=== PATIENT | male | born 1955 | race Caucasian/White ===

== ENCOUNTER → 2020-01-09 | Outpatient (CLI) | payer BC ==
[2020-01-09 12:27] LABS: African American GFR (CKD) >90 (>60 ml/min/1.73 sqM); Blood Urea Nitrogen 15 mg/dL (9-20); Non-African American GFR(CKD) >90 (>60 ml/min/1.73 sqM)
--- NOTE | 2020-01-09 15:41 | CT ---
EXAMINATION TYPE: CT brain wo/w con DATE OF EXAM: 01/09/2020 COMPARISON: None HISTORY: [facility] x5 months CT DLP: 2185.3 mGycm Automated exposure control for dose reduction was used. CONTRAST: CT scan of the head is performed without and with IV Contrast, patient injected with 100 mL of Isovue 300. FINDINGS: There is no abnormal enhancing mass or midline shift identified. The ventricles and sulci are within normal limits in size. The globes are intact and the visualized sinuses are remarkable for possible polyp or mucus retention cyst left maxillary sinus. IMPRESSION: Negative contrast enhanced head CT exam.
== END ==
LOC: RADCTMAIN 11:50
PROVIDERS: ATTEND Internal Medicine
DX: R51 Headache (principal); E11.9 Type 2 diabetes mellitus without complications
CPT/HCPCS: 82565; 84520; 70470; 36415; Q9967

== ENCOUNTER → 2020-12-09 | Outpatient (CLI) | payer BC ==
--- NOTE | 2020-12-09 17:02 | CONS ---
CONSULTATION DATE OF SERVICE: 12/09/2020 The is a 65-year-old gentleman who has been reevaluated in the sleep center for obstructive sleep apnea-hypopnea syndrome. HISTORY OF PRESENT ILLNESS/SLEEP-WAKE EVALUATION: Patient has history of obstructive sleep apnea for many years. He continues to use his CPAP equipment but recently developed episodes of headaches in the morning after awakening and during the day. [place] Sleepiness Scale today has increased to 12. His sleep schedule is from 11:30 p.m. to 6 or 8 a.m. Sometimes he has problems with falling asleep. He has a TV set in the bedroom. He usually sleeps on the side position. He wakes up from sleep up to 4 times, usually without nocturia. No history of hypnagogic hallucinations, sleep paralysis or cataplexy. Recently he was told by his that while using his CPAP he snores. I checked his CPAP unit. CPAP pressure is 18 cm of water, usage 28/30 nights for more than 4 hours, with average usage 6.9 hours per night. Patient has good compliance. Leak is 17 L/minute. Apnea-hypopnea index 0.8. PAST MEDICAL HISTORY: Positive for hypertension, diabetes mellitus, Reyes's palsy. PAST SURGICAL HISTORY: Right ear surgery. MEDICATIONS: 1. Metformin 1000 mg twice a day. 2. Hydrochlorothiazide 25 mg once a day. 3. Lipitor 10 mg once a day. 4. Losartan 100 mg once a day. 5. Ambien 5 mg if needed. 6. Topamax 50 mg once a day. SOCIAL HISTORY: Negative for smoking. Alcohol extremely rarely at the present time. FAMILY HISTORY: Headaches. REVIEW OF SYSTEMS: Occasional snoring while on CPAP, episodes of headaches. PHYSICAL EXAMINATION: GENERAL: A pleasant patient in no distress. VITAL SIGNS: BP 161/94, HR 73, RR 18, height 5 feet 7-1/2 inches, weight 372 pounds, which is about 35 pounds more than during previous visits. BMI 57.4. Temperature 98.0, oxygen saturation at room air 98%. HEENT: PERRLA, EOMI. Evaluation of oropharynx showed tongue protrudes midline. Low position of soft palate. NECK: Supple. No JVD. Thyroid is not palpable. Wide neck measuring 22-1/2 inches in circumference. LUNGS: Clear to percussion and to auscultation. Good air exchange. No wheezing or rhonchi. HEART: S1, S2 regular. No murmurs, gallops or rubs. ABDOMEN: Obese. EXTREMITIES: No clubbing or cyanosis. OUTSIDE SALES PROFESSIONAL: Awake, alert, and oriented X3. Cranial nerves 2 to 7 intact. There is no fasciculation or atrophy. noted. No focal deficits observed. IMPRESSION: 1. Obstructive sleep apnea-hypopnea syndrome. The patient demonstrated great compliance with treatment. Normal apnea-hypopnea index by reading from the machine, but patient has episodes of headaches in the morning and episodes of snoring while using CPAP. 2. Obesity. Patient's weight has increased by more than 30 pounds since his previous visit. 3. Hypertension. 4. Diabetes mellitus. 5. History of right ear surgery. 6. History of Reyes's palsy. PLAN: 1. I changed regimen in the machine to automatic; range of the pressure 15-20 cm of water. 2. The patient should continue to use CPAP equipment every night for the whole night. 3. Losing weight. 4. Sleep hygiene with regular time in bed for at least 7-1/2 to 8 hours. 5. No driving if feeling any sleepiness. 6. Prescription for all necessary CPAP supplies, including nasal mask of the patient's choice, tube, filters. Thank you very much for allowing me to participate in the management of your patient. Sincerely, Israel Lindsay MD, PhD, FAASM Diplomat of [employer] Custodian of [facility] [place] MMODL / IJN: [id number] /
== END | disposition home or self-care (01) ==
LOC: SLEEP 15:02
PROVIDERS: ATTEND Internal Medicine
DX: G47.33 Obstructive sleep apnea (adult) (pediatric) (principal); I10 Essential (primary) hypertension; E11.9 Type 2 diabetes mellitus without complications; E66.9 Obesity, unspecified; Z98.890 Other specified postprocedural states; Z99.89 Dependence on other enabling machines and devices; Z79.899 Other long term (current) drug therapy; Z79.84 Long term (current) use of oral hypoglycemic drugs
CPT/HCPCS: 99211

== ENCOUNTER 2024-04-03 07:10 | Day surgery (SDC) | payer BC, MEDICARE ==
[~2024-04-03 07:10] MED LIST: ALPRAZolam 0.25 MG TAB PO PRN; ALPRAZolam 0.5 MG TAB PO PRN; ASPIRIN 325 MG TAB PO STA; ATORVASTATIN 80 MG TAB PO STA; HEPARIN SODIUM,PORCINE (1 ML) 2,500 UNIT in SODIUM CHLORIDE 0.9% 250 ML IRRIGATION PRN; HEPARIN SODIUM,PORCINE 10,000 UNIT in SODIUM CHLORIDE 0.9% 1,000 ML IRRIGATION PRN; NITROGLYCERIN SL TABS 0.4 MG TAB SUBLINGUAL PRN; SODIUM CHLORIDE 0.9% 1,000 ML in EMPTY BAG 1 BAG IV SCH
[2024-04-03 08:03] VITALS: RESP 16; TEMP 98.1
[2024-04-03] MEDS ORDERED: HEPARIN SODIUM 1,000 UN/ML (10ML VL) ONE (09:43)
[2024-04-03] MEDS ORDERED: fentaNYL (PF) 50 MCG/ML 2 ML AMP ONE (09:43)
[2024-04-03] MEDS: LIDOCAINE 1% INJ 10MG/ML (20 ML MDV) SQ ONE (09:51)
[2024-04-03] MEDS: MIDAZOLAM 2 MG/2 ML VIAL IVP ONE (09:54)
[2024-04-03] MEDS: IV FLUID CONTINUATION 1,000 ML IV ONE (09:54)
[2024-04-03] MEDS: fentaNYL (PF) 50 MCG/ML 2 ML AMP IVP ONE (09:54)
[2024-04-03] MEDS: HEPARIN SODIUM 1,000 UN/ML (10ML VL) IVP ONE ×2 (09:55)
[2024-04-03] MEDS: IOPAMIDOL-370 100ML BTL INJ ONE (10:02)
[2024-04-03] MEDS: IOPAMIDOL-300 50ML BTL INJ ONE (10:08)
--- NOTE | 2024-04-03 10:15 | P.CARDCATH ---
Description of Procedure: PROCEDURES PERFORMED: Left heart catheterization, bilateral coronary angiography, ultrasound guided arterial access INDICATION: abnormal stress test CONSENT:I have discussed the risks, benefits and alternative therapies for the above-mentioned procedure and for both sedation/analgesia as well as necessary blood product administration, if indicated, as they pertain to this patient. The patient has indicated understanding and acceptance of the risks and procedures discussed. PROCEDURE: After the risks, benefits and alternatives of the above mentioned procedure explained in detail with the patient, informed consent was obtained. Patient was taken to the catheterization lab and prepped and draped in usual fashion. Ultrasound guidance was used to assess for arterial access. 1% lidocaine was used to anesthetize the right radial artery. A 6-Burkinan sheath was placed in the right radial artery using modified Seldinger technique and ultrasound guidance. Left coronary angiography was performed with a 5-Burkinan JL 3.5 catheter and right coronary angiography was performed with a 5-Burkinan AR2 catheter in various views. A 5-Burkinan AR2 catheter was inserted into the left ventricle and pressure measurements were obtained. The right radial sheath was removed and a TR band was placed with hemostasis achieved. The patient to lerated the procedure well. Patient was transported back to the post catheterization holding area in stable condition. Conscious Sedation: Patient was monitored under the direct supervision of myself for conscious sedation using Versed and fentanyl for a total duration of 18 minutes HEMODYNAMICS: Ao: 157/74 LV: 152/18, LVEDP 23 SELECTIVE CORONARY ARTERIOGRAPHY: LEFT MAIN: The left main is a large caliber vessel which bifurcates into the LAD and circumflex. There is no significant stenosis. LEFT ANTERIOR DESCENDING CORONARY ARTERY: LAD is a large caliber vessel which wraps around to the apex. There is a mid LAD 30-40% stenosis and otherwise mild luminal irregularities. LEFT CIRCUMFLEX CORONARY ARTERY: Left circumflex is a moderate caliber vessel without significant stenosis. RIGHT CORONARY ARTERY: The right coronary artery is a large caliber vessel which gives off a PDA and PLV branch and is the dominant vessel. There are mild luminal irregularities of the mid RCA. FINAL IMPRESSION: 1. Mild CAD as described above including mid LAD 30-40% stenosis 2. Elevated left sided filling pressures PLAN: 1. Aggressive risk factor modification per most recent ACC/AHA guidelines. 2. Follow-up in the office in 1-2 weeks.
[2024-04-03 15:22] VITALS: BP 134/62; PULSE 66
== END 2024-04-03 14:25 | disposition home or self-care (01) ==
LOC: CATHCVL 07:10
PROVIDERS: ATTEND Internal Medicine
DX: I25.10 Atherosclerotic heart disease of native coronary artery without angina pectoris (principal); I10 Essential (primary) hypertension; E11.9 Type 2 diabetes mellitus without complications; G47.33 Obstructive sleep apnea (adult) (pediatric); E78.5 Hyperlipidemia, unspecified; F17.210 Nicotine dependence, cigarettes, uncomplicated; Z82.49 Family history of ischemic heart disease and other diseases of the circulatory system; Z79.84 Long term (current) use of oral hypoglycemic drugs; Z79.899 Other long term (current) drug therapy
CPT/HCPCS: 93458; 76937; C1769; C1894; J2250; J2001; J3010; J1644; Q9967